=== PATIENT | female | born 1950 | race Caucasian/White ===

== ENCOUNTER 2017-07-15 16:03 | Outpatient (CLI) | payer MEDICARE, BC | END 2017-07-15 16:04 | disposition home or self-care (01) | LOC: BICMAMMO 16:03 | PROVIDERS: ATTEND Family Medicine | DX: Z12.31 Encounter for screening mammogram for malignant neoplasm of breast (principal); R92.1 Mammographic calcification found on diagnostic imaging of breast; Z80.3 Family history of malignant neoplasm of breast | CPT/HCPCS: 77063; 77067 ==

== ENCOUNTER 2018-02-13 23:34 | Observation (INO) | payer MEDICARE, BC ==
[2018-02-14] MEDS ORDERED: Nitroglycerin 2% Ointment 1 INCH/1 GM Packet ONE (00:08)
[2018-02-14 00:09] LABS: #Basophils 0.1 thou/uL (0.0-0.2); #Eosinphils 0.3 thou/uL (0.0-0.7); #Lymphocytes 1.9 thou/uL (1.20-3.40); #Monocytes 0.5 thou/uL (0.11-0.59); #Neutrophils 2.6 thou/uL (1.40-6.50); %Basophils 1.3 % (0.0-1.0); %Eosinophils 5.9 % (0.0-10.0); %Lymphocytes 35.2 % (21.0-51.0); %Monocytes 8.6 % (0.0-10.0); %Neutrophils 48.9 % (42.0-75.0); Hemoglobin 12.9 g/dL (12.0-16.0); Mean Corpuscular HGB CONC 33.6 g/dL (32.0-36.0); Mean Corpuscular Hemoglobin 29.2 pg (27.0-31.0); Mean Corpuscular Volume 86.8 fL (78.0-98.0); Mean Platelet Volume 6.8 fL (7.4-10.4); Platelet Count 259 thou/uL (130-400); RBC Distribution Width 11.8 % (11.5-14.5); Red Blood Cell (RBC) Count 4.42 mill/uL (4.20-5.40); White Blood Cell (WBC) Count 5.3 thou/uL (4.8-10.8)
[2018-02-14 00:29] LABS: ALT (SGPT) 20 U/L (8-55); AST (SGOT) 22 U/L (5-34); Albumin 4.2 g/dL (3.4-4.8); Alkaline Phosphatase 115 U/L (40-150); Anion Gap 12 mmol/L (10-20); BUN (Urea Nitrogen) 8 mg/dL (9.8-20.1); Bilirubin, Total 0.4 mg/dL (0.2-1.2); Calc. Creatinine Clearance 0 mL/min (70-130); Calcium 9.2 mg/dL (7.8-10.44); Carbon Dioxide 25 mmol/L (23-31); Chloride 105 mmol/L (98-107); Estimated GFR-MDRD 78; Glucose 135 mg/dL (80-115); Lipase 49 U/L (8-78); Potassium 3.4 mmol/L (3.5-5.1); Protein, Total 7.2 g/dL (6.0-8.3); Sodium 139 mmol/L (136-145)
[2018-02-14 00:33] LABS: CKMB 1.3 ng/mL (0-6.6); Troponin I Less than 0.010 ng/mL (< 0.028)
[2018-02-14 01:04] LABS: Bilirubin Negative (Negative); Blood, Urine Negative (Negative); Clarity CLOUDY (Clear); Glucose, Urine (Dipstick) Negative (Negative); Leukocyte Negative (Negative); Nitrite Negative (Negative); Protein, Urine (Dipstick) Negative (Neg-Trace); Specific Gravity, Urine 1.007 (1.002-1.036); Urobilinogen 0.2 mg/dL (0.2-1.0); pH, Urine 6.5 (5.0-9.0)
--- NOTE | 2018-02-14 01:48 | PDOC.FPRHP ---
- History of Present Illness Chief Complaint: chest pain History of Present Illness: Patient is a 67YO female w/ a PMH significant for HTN & HLD who presented to the ED with a CC of chest pain that she reports began around 23:00 on 02/13. The patient stated that she was up cleaning her house and had sudden onset central chest pressure that progressively worsening into a throbbing type of pain that radiated into her left shoulder, throat, and jaws. She said that she sat down to rest to see if that would lessen the pain but it did not help so she decided to come to the ED. The patient reports that this felt different from any pain that she has ever had before which was concerning to her. She says that at its max the pain was a 5/10 in severity but stated that it decreased to a 3/10 after getting the nitro paste in the ED. She reports that her pain is exacerbated by lying flat but is constant. She endorses some associated SOB but denies any N/V, diaphoresis, lightheadedness, or syncope. Of note, she has been on HT via an estrogen patch since having a B/L oophrectomy and hysterectomy in her late 40s. ED Course: Patient was given 1 inch of topical nitropaste & 1L of NS. - Allergies/Adverse Reactions Allergies Allergy/AdvReac Type Severity Reaction Status Date / Time codeine AdvReac Severe Nausea Verified 02/14/18 02:53 - Home Medications Medication Instructions Recorded Confirmed Type Aspirin [Ecotrin] 81 mg PO DAILY 02/14/18 02/14/18 History Aspirin/Acetaminophen/Caffeine 2 tab PO BID PRN 02/14/18 02/14/18 History [Excedrin Migraine Caplet] Dexlansoprazole [Dexilant] 30 mg PO DAILY 02/14/18 02/14/18 History Estradiol [Estradiol Patch] 1 patch TOP ASDIR 02/14/18 02/14/18 History Estradiol [Yuvafem] 1 tab VAG ASDIR 02/14/18 02/14/18 History Losartan Potassium 100 mg PO DAILY 02/14/18 02/14/18 History - History PMHx: HLD, HTN, h/o a benign parathyroid tumor PSHx: B/L oophrectomy, hysterectomy, appe, tonsillectomy, parathyroidectomy FHx: Mother- MD, TIAs, HTN, HLD Social: Lives at home with her . Works as a skilled trades teacher. Denies any tobacco, EtOH, or drug use. - Review of Systems General: denies: fever/chills, weight/appetite/sleep changes Eyes: denies: vision changes ENT: denies: nasal congestion Respiratory: reports: shortness of breath. denies: cough Cardiovascular: reports: chest pain. denies: palpitation Gastrointestinal: reports: diarrhea, constipation, GI bleeding (2/2 hemorrhoids) . denies: nausea, vomiting, abdominal pain Genitourinary: reports: other (no hematuria). denies: dysuria Skin: reports: itching. denies: rashes Musculoskeletal: reports: arthritis/arthralgias. denies: swelling Neurological: denies: numbness, syncope, weakness Psychological: denies: anxiety, depression - Vital signs BP: 179/87 HR: 85 RR: 18 Tmax: 97.9F Pox: 100% on RA Wt: 61.69kg - Physical Exam Constitutional: NAD, awake, alert and oriented, well developed HEENT: normocephalic and atraumatic, conjunctiva clear, no scleral icterus, grossly normal vision, grossly normal hearing Neck: supple, FROM Chest: no-tender to palpation, no lesions Heart: RRR, normal S1/S2, pulses present, no edema Lungs: CTAB, no respiratory distress, good air movement, no rales/rhonchi, no wheezing Abdomen: soft, non-tender, bowel sounds present Musculoskeletal: normal structure, ROM grossly normal Neurological: no focal deficit -Neurological: symmetric facial movements Skin: no rash/lesions, good turgor, capillary refill <2 seconds, no jaundice Heme/Lymphatic: no unusual bruising or bleeding Psychiatric: normal mood and affect, good judgment and insight, intact recent and remote memory FMR H&P: Results - Labs Result Diagrams: 02/14/18 00:01 02/14/18 02:58 Lab results: WBC 5.3 thou/uL (4.8-10.8) 02/14/18 00:01 Hgb 12.9 g/dL (12.0-16.0) 02/14/18 00:01 Hct 38.3 % (36.0-47.0) 02/14/18 00:01 MCV 86.8 fL (78.0-98.0) 02/14/18 00:01 Plt Count 259 thou/uL (130-400) 02/14/18 00:01 Neutrophils % 48.9 % (42.0-75.0) 02/14/18 00:01 Sodium 139 mmol/L (136-145) 02/14/18 00:01 Potassium 3.4 mmol/L (3.5-5.1) L 02/14/18 00:01 Chloride 105 mmol/L (98-107) 02/14/18 00:01 Carbon Dioxide 25 mmol/L (23-31) 02/14/18 00:01 BUN 8 mg/dL (9.8-20.1) L 02/14/18 00:01 Creatinine 0.74 mg/dL (0.6-1.1) 02/14/18 00:01 Glucose 135 mg/dL (80-115) H 02/14/18 00:01 Calcium 9.2 mg/dL (7.8-10.44) 02/14/18 00:01 Total Bilirubin 0.4 mg/dL (0.2-1.2) 02/14/18 00:01 AST 22 U/L (5-34) 02/14/18 00:01 ALT 20 U/L (8-55) 02/14/18 00:01 Alkaline Phosphatase 115 U/L (40-150) 02/14/18 00:01 CK-MB (CK-2) 1.3 ng/mL (0-6.6) 02/14/18 00:01 Serum Total Protein 7.2 g/dL (6.0-8.3) 02/14/18 00:01 Albumin 4.2 g/dL (3.4-4.8) 02/14/18 00:01 Lipase 49 U/L (8-78) 02/14/18 00:01 Urine Ketones Negative mg/dL (Negative) 02/14/18 00:55 Urine Blood Negative (Negative) 02/14/18 00:55 Urine Nitrite Negative (Negative) 02/14/18 00:55 Ur Leukocyte Esterase Negative (Negative) 02/14/18 00:55 - Radiology Interpretation CT scan - chest Status: report reviewed by il FMR H&P: A/P - Problem List (1) Chest pain Current Visit: Yes Status: Acute Code(s): R07.9 - CHEST PAIN, UNSPECIFIED (2) Hypokalemia Current Visit: Yes Status: Acute Code(s): E87.6 - HYPOKALEMIA (3) GERD (gastroesophageal reflux disease) Current Visit: Yes Status: Acute Code(s): K21.9 - GASTRO-ESOPHAGEAL REFLUX DISEASE WITHOUT ESOPHAGITIS (4) HTN (hypertension) Current Visit: Yes Status: Acute Code(s): I10 - ESSENTIAL (PRIMARY) HYPERTENSION (5) HLD (hyperlipidemia) Current Visit: Yes Status: Acute Code(s): E78.5 - HYPERLIPIDEMIA, UNSPECIFIED (6) History of benign parathyroid tumor Current Visit: Yes Status: Acute Code(s): Z86.39 - PERSONAL HISTORY OF ENDO , NUTRITIONAL AND METABOLIC DISEASE (7) Elevated d-dimer Current Visit: Yes Status: Acute Code(s): R79.89 - OTHER SPECIFIED ABNORMAL FINDINGS OF BLOOD CHEMISTRY - Plan 67YOF w/ a PMH of HTN & HLD who presents to the ED with a CC of sudden onset chest pain around 23:00 yesterday that was not relieved with rest but was relieved with nitro paste. Typical chest pain/unstable angina: - Patient reported typical central chest pain/pressure with radiation into L shoulder and jaws that was relieved with nitro paste. Could be from an NSTEMI vs. PE given associated SOB however, patient is not tachycardic and is satting well on RA. - Initial cardiac enzymes negative. ECG showed Q waves in lead III but otherwise no ST wave changes. Will trend troponins and continue to monitor closely on telemetry overnight. - Will check Mg & phos levels and check a TSH to r/o any organic causes that could have precipitated patient's CP. Will also order a FLP for risk stratification. - Will keep NPO overnight pending a stress test in the AM. Elevated D-dimer: - D-dimer elevated at 1.23 on presentation. - Could be 2/2 HT and/or stress from chest pain. - CTA of chest negative for PE. Hypokalemia: - K of 3.4 on presentation. - Will order a 20mEq PO dose to be taken once patient can tolerate PO. - Will monitor closely w/ repeat BMP with AM labs. HTN : - Patient's BP was significantly elevated w/ a SBP in the 200s on initial presentation. Decreased to 150s SBP after nitro paste was given but had increased back up to 179 on exam. - Will continue to monitor closely and resume home BP meds tomorrow once taking PO. Will consider adding IV PRNs for control overnight. HLD: - Aware. FLP pending for the AM. - Will resume home meds. GERD: - Aware, will resume home meds. h/o parathyroid tumor: - Aware, per patient tumor was benign and required only surgical removal. FMR H&P: Upper Level - Pertinent history 67 yo F presents with cc of chest pain that started around 2300 tonight. She was cleaning her house and had sudden onset pressure type pain that radiated to BL sides of her jaw and shoulder. She denies n/v/diaphoresis. She has never had this pain before. - Pertinent findings VSS as above, BP elevated Gen: awake, alert, oriented x3 CHEST: pain not reproducible with palpation HEENT: atraumatic, normorcephalic CV: RRR, no murmur noted RESP: CTAB ABD: soft, nontender, nondistended EXT: pulses 2+ throughout, no edema or cyanosis - Plan Date/Time: 02/14/18 0147 67 yo F with typical chest pain here for r/o MD 1. Typical chest pain - HEART score 5 - Will trend troponins and monitor on telemetry - NPO and plan for stress in AM - CT pending because d-dimer elevated - Check FLP, TSH, Mg, Phos, a1c or fasting glucose 2. Hypokalemia - Will replete 3. HTN - Home meds - Will give IV PRN Please see Dr. Alcantara's note for additional A/P I, Eleonora Montes MD, PGY-3, have evaluated this patient and agree with findings/ plan as outlined by internal medicine nurse resident. Pertinent changes/additions are listed here. Attending Addendum - Attending Addendum Date/Time: 02/14/18 2073 I personally evaluated the patient and discussed the management with Dr. Alcantara/ Simon. I agree with the History, Examination, Assessment and Plan documented above with any addition or exceptions noted below. Patient here with typical chest pain and family history of CAD. No chest pain currently. Stress test and further mgmt per that result. Will need statin therapy for HLD and increased ASCVD risk score.
[2018-02-14] MEDS ORDERED: Ondansetron PF 4 MG/2 ML Vial IVP PRN (02:40)
[2018-02-14] MEDS ORDERED: Acetaminophen 325 MG TAB PO PRN (02:40)
[2018-02-14] MEDS ORDERED: Nitroglycerin 0.4 MG TAB (25 Tab Bottle) PO PRN (02:40)
[2018-02-14 02:50] VITALS: BMI 26.6
[2018-02-14] MEDS ORDERED: hydrALAZINE 20 MG/ML VIAL SLOW IVP PRN (03:23)
[2018-02-14 03:35] LABS: Magnesium 2.1 mg/dL (1.6-2.6); Phosphorus 2.7 mg/dL (2.3-4.7)
[2018-02-14 03:40] LABS: Troponin I Less than 0.010 ng/mL (< 0.028)
[2018-02-14 03:53] LABS: Anion Gap 15 mmol/L (10-20); BUN (Urea Nitrogen) 7 mg/dL (9.8-20.1); Calc. Creatinine Clearance 81 mL/min (70-130); Calcium 9.1 mg/dL (7.8-10.44); Carbon Dioxide 20 mmol/L (23-31); Cardiac Risk 3.9 (Less than 4.5); Chloride 109 mmol/L (98-107); Cholesterol 195 mg/dl (< 200 Desired); Estimated GFR-MDRD 86; Glucose 122 mg/dL (80-115); HDL Cholesterol 50 mg/dL (>60 Neg Risk); LDL Cholesterol, Calculated 129 mg/dL; Potassium 4.1 mmol/L (3.5-5.1); Sodium 140 mmol/L (136-145); Triglycerides 80 mg/dL (Less than 150)
[2018-02-14] MEDS ORDERED: Aspirin/APAP/Caffeine Tab (Excedrin Migraine) PO PRN (04:03)
[2018-02-14 06:23] LABS: Troponin I Less than 0.010 ng/mL (< 0.028)
--- NOTE | 2018-02-14 07:23 | RAD ---
ONE VIEW CHEST: HISTORY: CHEST PAIN FINDINGS: Normal cardiac silhouette. The pulmonary vessels and hilum are normal. Costophrenic angles are durga r. No mass. No consolidation. No pneumothorax or osseous abnormalities. IMPRESSION: No acute cardiopulmonary process. POS: [facility]
[2018-02-14] MEDS ORDERED: Enoxaparin Sodium 40 MG/0.4 ML SYRINGE SC SCH (09:00)
[2018-02-14] MEDS ORDERED: Aspirin 81 mg Enteric Coated Tablet PO SCH (09:00)
[2018-02-14] MEDS ORDERED: Losartan 25 MG TAB PO SCH (09:00)
--- NOTE | 2018-02-14 09:23 | CT ---
PRELIMINARY REPORT/[facility]/EMERGENTY AFTER-HOURS PROCEDURE CT Angiography Chest With Intravenous Contrast EXAM DATE/TIME: 02/14/2018 1:01 AM CLINICAL HISTORY: 67 years old, female; Chest pain; Radiating; TECHNIQUE: Axial computed tomographic angiography images of the chest with intravenous contrast using CT angiogr aphy protocol. All CT scans at this facility use at least one of these dose optimization techniques: automated exposure control; mA and/or kV adjustment per patient size (includes targeted exams where dose is mat ched to clinical indication); or iterative reconstruction. MIP reconstructed images were created and reviewed. COMPARISON: No relevant prior studies available. FINDINGS: Pulmonary arteries: Normal. No pulmonary emboli. Aorta: Normal. No aortic aneurysm. No aortic dissection. Lungs: Scattered ground glass parenchymal opacities bilaterally may reflect mild infiltrates vs areas of mosaic perfusion. No lobar consolidation. No air bronchograms. No mass or suspicious lung nodules . Pleural space: Normal. No pneumothorax. No pleural effusion. Heart: Normal. No cardiomegaly. No pericardial effusion. Mediastinum: Small to moderate hiatal hernia. Lymph nodes: Unremarkable. No enlarged lymph nodes. Bones/joints: Unremarkable. No acute fracture. Soft tissues: Unremarkable. IMPRESSION: No pulmonary emboli. Scattered ground glass parenchymal opacities bilaterally may reflect mild infiltrates vs areas of mos aic perfusion. Small to moderate hiatal hernia. Thank you for allowing us to participate in the care of your patient. Dictated and Authenticated by: Percy Lopez MD 02/14/2018 1:29 AM Central Time ([place] & [place]) FINAL REPORT EMERGENT AFTER HOURS CT ANGIO CHEST PERFORMED WITH INTRAVENOUS CONTRAST ENHANCEMENT WITH 3D RECONSTRU CTIONS: HISTORY: Chest pain. FINDINGS: The lungs show a somewhat mosaic type of lung pattern which is fairly nonspecific. There is no confl uent infiltrative process present. No pulmonary nodules are identified. No significant mediastinal or hilar or axillary adenopathy is seen. Thoracic aorta is normal in caliber. There is fairly good pulmonary artery opacification, there is no CT evidence for pulmonary embolus. Hiatal hernia is noted. Visualized liver parenchyma shows no focal findings. The spleen is 11 cm in length. IMPRESSION: 1. Mosaic lung pattern. This can be caused by multiple causes. No confluent infiltrative process s een. 2. No CT evidence for a pulmonary embolus. 3. Moderate-sized hiatal hernia. 4. This report is in agreement with the temporary report issued by [facility]. POS: [facility]
[2018-02-14] MEDS ORDERED: ISOVUE-370 76%-LOCM 1 ML ONE (10:10)
[2018-02-14 12:18] VITALS: TEMP 97.8
[2018-02-14 12:45] VITALS: BP 161/74
--- NOTE | 2018-02-14 13:52 | NM ---
CARDIAC SPECT: HISTORY: A 67-year-old with chest pain, hypertension. TECHNIQUE: A myocardial perfusion scan is performed using the single-isotope 1-day protocol with Technetium 99m sestamibi. Ten mCi were injected intravenously for the rest exam followed by 27 mCi for the stress s tudy. Exercise stress was monitored and interpreted by Dr. Samuels. FINDINGS: Homogeneous tracer distribution is seen in the myocardial segments on stress and rest images without fixed or reversible defects. GATED SPECT LVEF: 84%. WALL MOTION EXAM: Normal. IMPRESSION: Normal myocardial perfusion scan. POS: [facility]
--- NOTE | 2018-02-18 04:18 | DIS-2 ---
DATE OF ADMISSION: 02/14/2018 DATE OF DISCHARGE: 02/14/2018 ADMITTING ATTENDING: Dre Townsend MD DISCHARGE ATTENDING: Dre Townsend MD RESIDENT: Hemalatha Alcantara MD and Cinthya Franz MD DISCHARGE DIAGNOSES: 1. chest pain, myocardial infarction ruled out. 2. Hypertension. 3. Hyperlipidemia. 4. History of benign parathyroid tumor. DISCHARGE MEDICATIONS: 1. Aspirin 81 mg daily. 2. Excedrin Migraine 2 tabs p.o. b.i.d. p.r.n. 3. Dexilant 30 mg p.o. daily. 4. Estradiol 1 patch topical as directed. 5. Estradiol 1 tablet vaginally inserted as directed. 6. Losartan 100 mg p.o. daily. PROCEDURES AND IMAGIN. There was a chest CTA done on 02/14/2018 that read no pulmonary emboli. There was scattered grou nd glass parenchymal opacities bilaterally may reflect mild infiltrates versus areas of perfusi on and a [id number] hiatal hernia. 2. A chest x-ray that was obtained on 02/13/2018 that showed no acute cardiopulmonary process. 3. There was a nuclear medicine exercise stress test that showed normal myocardial perfusion scan wi th a left ventricular ejection fraction of 84%. HISTORY OF PRESENT ILLNESS AND HOSPITAL COURSE: This is a 67-year-old female with past med ical history of hypertension, hyperlipidemia who presented to the ED with complaints of chest pain th at began late at night when she was cleaning her house. She described a sudden onset chest pain that was progressively worsening, throbbing, and radiating to her left shoulder throughout to jaw. She s at down and it did lessen the pain to some degree and her pain did improve after getting nitro in the ED. Patient proceeded to have a stress test. which ruled out and she had a reversible defect to the myocardium. Patient did have a lipid panel done to risk stratify, which showed her cholesterol to b e 195, LDL 129, HDL 50, and did give her an overall 10-year ASCVD risk of 9%. This was discussed in great detail with the patient and suggested that she would be started on a statin medication; however , the patient wanted to try diet and exercise and follow up with her PCP, which was recommended to do within 3 to 6 months to have repeat lipid panel and consideration of medication started at that time . Patient did have negative troponins x3 done during her hospital stay. Patient had an EKG that rere wed some Q-waves in lead 3, but otherwise no ST elevation or changes. It was recommended that patien t follow up with her PCP after hospital discharge. DISCHARGE INSTRUCTIONS: 1. Diet: Regular. 2. Activity: As tolerated. 3. Follow up with PCP after hospital discharge.
== END 2018-02-14 14:35 | disposition home or self-care (01) ==
LOC: ERS 23:34 → 2SW 02-14 01:47
PROVIDERS: ADMIT Student in an Organized Health Care Education/Training Program; ATTEND Student in an Organized Health Care Education/Training Program
DX: R07.89 Other chest pain (principal); E78.5 Hyperlipidemia, unspecified; E87.6 Hypokalemia; R79.89 Other specified abnormal findings of blood chemistry; I10 Essential (primary) hypertension; Z86.39 Personal history of other endocrine, nutritional and metabolic disease; Z82.49 Family history of ischemic heart disease and other diseases of the circulatory system; Z79.82 Long term (current) use of aspirin; Z79.899 Other long term (current) drug therapy; Z88.5 Allergy status to narcotic agent
CPT/HCPCS: 71045; 71275; 78452; 80048; 80053; 80061; 81003; 82553; 83690; 83735; 84100; 84443; 84484 ×2; 85025; 85379; 87086; 93005; 93017; 94760; 99285; A9500; G0378 ×2; 36415; 96360; J1650

== ENCOUNTER 2018-08-05 08:47 | Outpatient (CLI) | payer MEDICARE, BC ==
--- NOTE | 2018-08-05 09:19 | MMO ---
Bilateral MAMMO Bilat Screen [facility]. CLINICAL HISTORY: Patient is 68 years old and is seen for screening. The patient has the following family history of breast cancer: paternal aunt, 40's. The patient has no personal history of cancer. The patient has a history of bilateral Cyst Aspiration and bilateral Excisional Biopsy. VIEWS: The views performed were: bilateral craniocaudal with tomosynthesis; bilateral mediolateral oblique with tomosynthesis; and bilateral exaggerated craniocaudal. FILMS COMPARED: The present examination has been compared to prior imaging studies performed at [facility] on 12/22/2010, 01/13/2014, 04/07/2015, 06/05/2016 and 07/15/2017. MAMMOGRAM FINDINGS: There are scattered fibroglandular densities. There are stable benign appearing calcifications seen in both breasts. There are also vascular calcifications. There are no suspicious masses, suspicious calcifications, or new areas of architectural distortion. IMPRESSION: THERE IS NO MAMMOGRAPHIC EVIDENCE OF MALIGNANCY. A ROUTINE FOLLOW-UP MAMMOGRAM IN 1 YEAR IS RECOMMENDED. THE RESULTS OF THIS EXAM WERE SENT TO THE PATIENT. ACR BI-RADS Category 2 - Benign finding MAMMOGRAPHY NOTE: 1. A negative mammogram report should not delay a biopsy if a dominant of clinically suspicious mass is present. 2. Approximately 10% to 15% of breast cancers are not detected by mammography. 3. Adenosis and dense breasts may obscure an underlying neoplasm.
== END 2018-08-05 08:48 | disposition home or self-care (01) ==
LOC: BICMAMMO 08:47
PROVIDERS: ATTEND Family Medicine
DX: Z12.31 Encounter for screening mammogram for malignant neoplasm of breast (principal); Z80.3 Family history of malignant neoplasm of breast
CPT/HCPCS: 77063; 77067

== ENCOUNTER 2019-03-30 16:21 | Outpatient (CLI) | payer MEDICARE, BC ==
--- NOTE | 2019-03-30 16:53 | RAD ---
Chest 2 views HISTORY: Cough. FINDINGS: Cardiac silhouette and pulmonary vasculature are unremarkable. Mild reticulonodular interst itial prominence. No confluent airspace consolidation, pneumothorax, or pleural fluid. Mediastinum is midline. IMPRESSION: Diffuse reticulonodular interstitial prominence is nonspecific but can be seen with and a typical inflammatory process such as mycoplasma in the setting of cough. No lobar consolidation evident.
== END 2019-03-30 16:22 | disposition home or self-care (01) ==
LOC: BICRAD 16:21
PROVIDERS: ATTEND Family Medicine
DX: R05 Cough (principal); R91.8 Other nonspecific abnormal finding of lung field
CPT/HCPCS: 71046

== ENCOUNTER 2019-04-23 09:13 | Outpatient (CLI) | payer MEDICARE, BC ==
--- NOTE | 2019-04-23 10:01 | RAD ---
TWO VIEW CHEST: HISTORY: Dyspnea. COMPARISON: 03/30/2019. FINDINGS: The lung verma are clear. No infiltrate or vascular congestion. Heart and mediastinum unremarkable . Osseous structures unremarkable. IMPRESSION: No acute process. POS: [facility]
== END 2019-04-23 09:14 | disposition home or self-care (01) ==
LOC: RAD 09:13
PROVIDERS: ATTEND Internal Medicine Critical Care Medicine
DX: R06.00 Dyspnea, unspecified (principal)
CPT/HCPCS: 71046

== ENCOUNTER 2019-09-01 15:15 | Outpatient (CLI) | payer MEDICARE, BC ==
--- NOTE | 2019-09-01 15:54 | MMO ---
Bilateral MAMMO Bilat Screen [facility]. CLINICAL HISTORY: Patient is 69 years old and is seen for screening. The patient has the following family history of breast cancer: paternal aunt, 40's. The patient has no personal history of cancer. The patient has a history of bilateral Cyst Aspiration and bilateral Excisional Biopsy. VIEWS: The views performed were: bilateral craniocaudal with tomosynthesis; bilateral mediolateral oblique with tomosynthesis; and bilateral exaggerated craniocaudal. FILMS COMPARED: The present examination has been compared to prior imaging studies performed at [facility] on 04/07/2015, 06/05/2016, 07/15/2017 and 08/05/2018. This study has been interpreted with the assistance of computer-aided detection. MAMMOGRAM FINDINGS: There are scattered fibroglandular densities. There are stable benign appearing calcifications seen in both breasts. There are also vascular calcifications. There are no suspicious masses, suspicious calcifications, or new areas of architectural distortion. IMPRESSION: THERE IS NO MAMMOGRAPHIC EVIDENCE OF MALIGNANCY. A ROUTINE FOLLOW-UP MAMMOGRAM IN 1 YEAR IS RECOMMENDED. THE RESULTS OF THIS EXAM WERE SENT TO THE PATIENT. ACR BI-RADS Category 2 - Benign finding MAMMOGRAPHY NOTE: 1. A negative mammogram report should not delay a biopsy if a dominant of clinically suspicious mass is present. 2. Approximately 10% to 15% of breast cancers are not detected by mammography. 3. Adenosis and dense breasts may obscure an underlying neoplasm. Reported by: DEBRA GREEN MD Electonically Signed: [id number]
== END 2019-09-01 15:16 | disposition home or self-care (01) ==
LOC: BICMAMMO 15:15
PROVIDERS: ATTEND Family Medicine
DX: Z12.31 Encounter for screening mammogram for malignant neoplasm of breast (principal); Z80.3 Family history of malignant neoplasm of breast
CPT/HCPCS: 77063; 77067

== ENCOUNTER 2020-01-22 11:19 | Observation (INO) | payer MEDICARE, BC ==
[2020-01-22 11:56] LABS: #Basophils 0.1 thou/uL (0.0-0.2); #Eosinphils 0.3 thou/uL (0.0-0.7); #Lymphocytes 2.1 thou/uL (1.20-3.40); #Monocytes 0.8 thou/uL (0.11-0.59); %Basophils 0.8 % (0.0-1.0); %Eosinophils 3.7 % (0.0-10.0); %Lymphocytes 22.8 % (21.0-51.0); %Monocytes 8.3 % (0.0-10.0); %Neutrophils 64.4 % (42.0-75.0); Hemoglobin 15.4 g/dL (12.0-16.0); Mean Corpuscular HGB CONC 34.5 g/dL (32.0-36.0); Mean Corpuscular Hemoglobin 29.7 pg (27.0-31.0); Mean Corpuscular Volume 86.1 fL (78.0-98.0); Mean Platelet Volume 6.8 fL (7.4-10.4); Platelet Count 327 thou/uL (130-400); RBC Distribution Width 11.2 % (11.5-14.5); Red Blood Cell (RBC) Count 5.18 mill/uL (4.20-5.40); White Blood Cell (WBC) Count 9.3 thou/uL (4.8-10.8)
--- NOTE | 2020-01-22 11:56 | RAD ---
XR Chest 1 View Portable History: Shortness of breath Comparison: Radiograph March 2019 Findings: Lungs are clear. No pneumothorax or effusion. Likely small hiatal hernia. Cardiac silhouett e is within normal limits. No acute osseous abnormality. Impression: 1. No acute intrathoracic abnormality. 2. Small hiatal hernia.
[2020-01-22] MEDS ORDERED: Nitroglycerin 2% Ointment 1 INCH/1 GM Packet ONE (12:12)
[2020-01-22] MEDS ORDERED: Aspirin Chewable 81 MG TAB ONE (12:12)
[2020-01-22 12:14] LABS: ALT (SGPT) 18 U/L (8-55); AST (SGOT) 16 U/L (5-34); Albumin 4.7 g/dL (3.4-4.8); Alkaline Phosphatase 121 U/L (40-110); Anion Gap 13 mmol/L (10-20); BUN (Urea Nitrogen) 15 mg/dL (9.8-20.1); Bilirubin, Total 0.6 mg/dL (0.2-1.2); Calc. Creatinine Clearance 0 mL/min (70-130); Calcium 9.9 mg/dL (7.8-10.44); Carbon Dioxide 28 mmol/L (23-31); Chloride 100 mmol/L (98-107); Estimated GFR-MDRD 69; Globulin 3.5 g/dL (2.4-3.5); Glucose 98 mg/dL (80-115); Potassium 3.4 mmol/L (3.5-5.1); Protein, Total 8.2 g/dL (6.0-8.3); Sodium 138 mmol/L (136-145)
--- NOTE | 2020-01-22 14:26 | PDOC.FPRHP ---
- History of Present Illness Chief Complaint: Chest pain History of Present Illness: This is a 69F who presented to the ED for SOB and CP. This morning, she woke up with a VALERO and checked her BP which was approx 200/100. She took her morning Losartan and felt better. Later that morning, she started having SOB while "running around" at work that continued increasing and was then accompanied by CP. The pain was located on the L side under her breast, that was constant, dull, and rated at 4-5/10. There was no radiation. She said the SOB and CP felt like they were related to exertion and that if she could just sit down and rest they would go away, but she never stopped to rest. After this didn't resolve for 2 hours, she called her doctor who encouraged her to go to the ED. No hx of OH or CHF. She states she has not had CP on exertion before and her SOB initially started a few days ago but she was just diagnosed with and treated for bronchitis. She has a hx of GERD but states this feels very different and was not associated with a meal. She had a similar episode two years ago but states she had more pressure and a squeezing sensation that moved from her low central chest, up her neck, and into her jaw which feels very different from the pain today. She had a stress test performed then which was normal and she was discharged with instructions to f/u with her PCP for HLD management since she was resistant to starting a statin. - Allergies/Adverse Reactions Allergies Allergy/AdvReac Type Severity Reaction Status Date / Time codeine AdvReac Severe Nausea Verified 06/15/19 15:05 - Home Medications Medication Instructions Recorded Confirmed Type Aspirin/Acetaminophen/Caffeine 2 tab PO BID PRN 02/14/18 01/22/20 History [Excedrin Migraine Caplet] Dexlansoprazole [Dexilant] 30 mg PO DAILY 02/14/18 01/22/20 History Estradiol [Yuvafem] 1 tab VAG ASDIR 02/14/18 01/22/20 History Losartan Potassium 100 mg PO DAILY 02/14/18 01/22/20 History Fluticasone Propionate [Flonase 1 spray EA NARE DAILY 01/22/20 01/22/20 History Nasal [place]] Fluticasone Propionate [Flovent 100 mcg INH BID 01/22/20 01/22/20 History Diskus] Folic Acid 1 mg PO 01/22/20 History Mecobalamin [B12 Active] 2,500 mcg PO 01/22/20 History Metoprolol Succinate 50 mg PO DAILY 01/22/20 01/22/20 History Niacin 500 mg PO HS 01/22/20 01/22/20 History - History PMHx: HTN, HLD, migraines, GERD, suspicion for autoimmune disorder d/t recurrent joint pains/body aches PSHx: Hysterectomy, b/l oopherectomy, appendectomy, tonsillectomy, lithotripsy. No complications with anesthesia. FHx: Mom CAD Social: Lives with . Smoked as a teenager for 3-4yrs. Denies alcohol or drugs. Allergies: NKDA. "Allergy" to codeine and other pain meds is that they make her nauseated - Review of Systems General: denies: fever/chills Eyes: denies: vision changes Respiratory: reports: shortness of breath. denies: cough Cardiovascular: reports: chest pain, palpitation Gastrointestinal: denies: nausea, vomiting, diarrhea, abdominal pain Genitourinary: reports: dysuria Skin: denies: rashes Musculoskeletal: denies: swelling Neurological: denies: syncope - Vital signs BP: 184/97, Pulse: 72, Resp: 16, Temp: 97.8 (Oral), Pain: 5, O2 sat: 99 on (Room Air) - Physical Exam Constitutional: NAD, awake, alert and oriented, well developed HEENT: normocephalic and atraumatic, PERRLA, conjunctiva clear, grossly normal vision, grossly normal hearing, MMM Neck: supple Chest: no-tender to palpation Heart: RRR, normal S1/S2, no murmurs/rubs/gallops, pulses present, no edema Lungs: CTAB, no respiratory distress, good air movement Abdomen: soft, non-tender, bowel sounds present, no masses/distention Musculoskeletal: normal structure, normal tone, ROM grossly normal Neurological: no focal deficit Skin: no rash/lesions Heme/Lymphatic: no purpura Psychiatric: normal mood and affect, good judgment and insight, intact recent and remote memory FMR H&P: Results - Labs Result Diagrams: 01/22/20 11:37 01/22/20 11:37 Lab results: WBC 9.3 thou/uL (4.8-10.8) 01/22/20 11:37 Hgb 15.4 g/dL (12.0-16.0) 01/22/20 11:37 Hct 44.5 % (36.0-47.0) 01/22/20 11:37 MCV 86.1 fL (78.0-98.0) 01/22/20 11:37 Plt Count 327 thou/uL (130-400) 01/22/20 11:37 Neutrophils % 64.4 % (42.0-75.0) 01/22/20 11:37 Sodium 138 mmol/L (136-145) 01/22/20 11:37 Potassium 3.4 mmol/L (3.5-5.1) L 01/22/20 11:37 Chloride 100 mmol/L (98-107) 01/22/20 11:37 Carbon Dioxide 28 mmol/L (23-31) 01/22/20 11:37 BUN 15 mg/dL (9.8-20.1) 01/22/20 11:37 Creatinine 0.82 mg/dL (0.6-1.1) 01/22/20 11:37 Glucose 98 mg/dL (80-115) 01/22/20 11:37 Calcium 9.9 mg/dL (7.8-10.44) 01/22/20 11:37 Total Bilirubin 0.6 mg/dL (0.2-1.2) 01/22/20 11:37 AST 16 U/L (5-34) 01/22/20 11:37 ALT 18 U/L (8-55) 01/22/20 11:37 Alkaline Phosphatase 121 U/L (40-110) H 01/22/20 11:37 B-Natriuretic Peptide 84.9 pg/mL (0-100) 01/22/20 11:37 Serum Total Protein 8.2 g/dL (6.0-8.3) 01/22/20 11:37 Albumin 4.7 g/dL (3.4-4.8) 01/22/20 11:37 FMR H&P: A/P - Plan This is a 69F who presented to the ED after SOB and CP that started this morning with exertion and lasted 2hrs. Typical chest pain ACS R/O vs. Hypertensive urgency - VALERO with reported BP 200/100 - SOB/CP that started on exertion CP with ACS r/o in 2018 with neg stress test - CXR noncontributory - CBC, BMP nml, BNP 85, Alk Phos 121 - Trops neg x2, ED EKG neg - Lipid panel, A1c ordered - Stress test ordered Consider Cardiology consult pending results HTN - SBP ~180 on arrival and in 150s despite nitro patch - Continue home Losartan - Add on Amlodipine 5mg - Continue to monitor BPs and increase tx as necessary HLD - Lipid panel ordered - MD aware, continue home meds Chronic problems: Migraines - MD aware, continue home meds GERD - MD aware, continue home meds Code: Full Diet: HH, NPO at midnight for stress test IVF: N/A DVT Ppx: SCDs PCP: Aakash Dispo: Admit to tele obs. Expected LOS <48h pending stress test results. FMR H&P: Upper Level - Plan Date/Time: 01/22/20 1426 Ms Arana is a 69yo female with pmh of HTN, HLD, lupus presenting with pressure like chest pain and SOB that started this morning. Left sided chest pain that did not radiate. Currently 2/10 chest pain. Reports it completely resolved with Nitro but has mildly returned. Denied associated diaphoresis, nausea. Negative stress test 01/2018. Pain felt the same at that time. Received ASA 325mg in ED. Only current complaint is start of Migraine. PE: Vital signs reviewed General: NAD CV: Chest pain nonreproducible, RRR no murmurs Pulm: CTA b/l Extremities: No edema A/P: Typical Chest pain -EKG with no signs of ischemia, CXR no acute findings, Trop neg. Will admit to tele, trend trops. NPO at midnight for stress test in AM. EKG if return of chest pain. HTN, uncontrolled -BP 176/85. Continue home Losartan which is maxed out. Will add another oral agent, avoid BB due to stress test tomorrow. I, Swetha Crowley, have evaluated this patient and agree with findings/plan as outlined by dental internship resident. Pertinent changes/additions are listed here. Addendum - Attending - Attending Attestation Date/Time: 01/22/20 0688 I personally evaluated the patient and discussed the management with Dr. Ivy Alfaro/Keo. I agree with the History, Examination, Assessment and Plan documented above with any addition or exceptions noted below.
[2020-01-22 15:47] LABS: Troponin I Less than 0.010 ng/mL (< 0.028)
[2020-01-22] MEDS ORDERED: Aspirin/APAP/Caffeine Tab (Excedrin Migraine) PO PRN (16:47)
[2020-01-22] MEDS ORDERED: Acetaminophen 650 MG Suppository PR PRN (16:47)
[2020-01-22] MEDS ORDERED: Ondansetron ODT 4 MG TAB PO PRN (16:47)
[2020-01-22] MEDS ORDERED: Acetaminophen 325 MG TAB PO PRN (16:47)
[2020-01-22 18:14] LABS: Troponin I Less than 0.010 ng/mL (< 0.028)
[2020-01-22 19:19] LABS: Bilirubin Negative (Negative); Blood, Urine Negative (Negative); Clarity Clear (Clear); Glucose, Urine (Dipstick) Normal (Negative); Ketone, Urine Negative (Negative); Leukocyte Negative Leu/uL (Negative); Nitrite Negative (Negative); Protein, Urine (Dipstick) Negative (Neg-Trace); RBC/HPF 0-3 HPF (0-3); Specific Gravity, Urine 1.012 (1.002-1.036); Squamous Epithelial 0-3 HPF (0-3); Urobilinogen Normal mg/dL (Less than 2); WBC/HPF 0-3 HPF (0-3)
[2020-01-22 19:20] LABS: Bacteria/HPF Rare-Few HPF (None Seen)
[2020-01-22] MEDS: Mometasone Furoate 120 PUFF 220 MCG INH SCH (20:59)
[2020-01-22] MEDS ORDERED: Niacin 500 MG TAB PO SCH (21:00)
[2020-01-22] MEDS ORDERED: Amlodipine 5 MG TAB PO SCH (21:00)
[2020-01-23 05:20] LABS: Hemoglobin A1c 4.9 % (4.0-6.0)
[2020-01-23 05:37] LABS: Cardiac Risk 3.5 (Less than 4.5)
--- NOTE | 2020-01-23 06:02 | PDOC.FM ---
- Subjective Subjective: No acute overnight events. No further chest pain or SOB since admission from the ED. Had headache with nitro but that has resolved now too. Denies additional complaints this morning. Sinus sammy on tele overnight, reports her HR is always in 50-60s at rest. - Objective Vital Signs & Weight: Vital Signs (12 hours) Temp Pulse Resp BP BP Pulse Ox 01/23/20 03:47 97.8 F 61 16 131/63 98 01/23/20 00:35 56 L 122/64 01/22/20 21:45 60 113/60 01/22/20 20:59 97 01/22/20 19:45 98.1 F 62 16 133/67 95 Weight Weight 145 g I&O: 01/21/20 01/22/20 01/23/20 06:59 06:59 06:59 Intake Total 200 Output Total 400 Balance -200 Result Diagrams: 01/22/20 11:37 01/22/20 11:37 EKG Reviewed by me: Yes (tele reviewed - sinus sammy 50s) Phys Exam - Physical Examination Constitutional: NAD HEENT: moist MMs Respiratory: no wheezing, no rales, no rhonchi, clear to auscultation bilateral Cardiovascular: RRR, no significant murmur Gastrointestinal: soft, non-tender, no distention, positive bowel sounds Musculoskeletal: no edema Neurological: non-focal, moves all 4 limbs Psychiatric: normal affect, A&O x 3 Skin: no rash Dx/Plan - Plan Plan: This is a 69F who presented to the ED after SOB and CP that started this morning with exertion and lasted 2hrs. Typical chest pain likely 2/2 HTN urgency vs ACS less likely Exertional chest pain, now resolved. Reported outpatient BP 200/100, now wnl. Stress test in 2018 - negative. Trops neg x 3, EKG wnl. No events on tele. CBC, CMP, BNP all wnl. - Stress test pending - likely discharge to home after stress test if normal HTN On home losartan and newly added 5mg amlodipine, now normotensive - continue losartan and amlodipine - continue to monitor BP HLD ASCVD 11.4%, moderate to high intensity statin recommended. Dietary interventions tried in past per patient. - discuss starting statin therapy Chronic problems: Migraines - MD aware, continue home meds GERD - MD aware, continue home meds Code: Full Diet: HH, NPO at midnight for stress test IVF: N/A DVT Ppx: SCDs PCP: Aakash Dispo: Admit to tele obs. Expected LOS <48h pending stress test results. Addendum - Attending - Attending Attestation Date/Time: 01/23/20 0750 I personally evaluated the patient and discussed the management with Dr. Haines. I agree with the History, Examination, Assessment and Plan documented above with any addition or exceptions noted below. Patient feels improved, no further chest pain. Undergoing stress test this morning. Her BP is improved with Norvasc added. Awaiting stress test results, then likely dc home pending negative result. Counselling and reassurance provided this morning.
[2020-01-23] MEDS ORDERED: Fluticasone Propionate Nasal Spray 16 gm Bottle NASAL SCH (09:00)
[2020-01-23] MEDS ORDERED: Losartan 25 MG TAB PO SCH (09:00)
[2020-01-23] MEDS ORDERED: Niacin 500 MG TAB PO SCH (09:00)
[2020-01-23] MEDS ORDERED: Folic Acid 1 MG TAB PO SCH (09:00)
[2020-01-23] MEDS ORDERED: Cyanocobalamin (Vitamin B-12) 1,000 MCG TAB PO SCH (09:00)
[2020-01-23 12:28] VITALS: BP 109/59; TEMP 98.1
--- NOTE | 2020-01-23 18:07 | NM ---
MYOCARDIAL PERFUSION SCAN: 01/23/20 PROVIDED CLINICAL HISTORY: Chest pain. RADIOPHARMACEUTICAL: 28.7 millicuries technetium 99m labeled Sestamibi IV stress. 10.4 millicuries technetium 99m labeled Sestamibi IV rest. FINDINGS: There is normal homogeneous distribution of radiotracer throughout the left ventricular myocardium at stress and rest. Gated data demonstrate normal cardiac wall motion and thickening with calculated LV EF of 88%. TID of 0.8. IMPRESSION: 1. No scintigraphic evidence for ischemia. 2. Normal LVEF. POS: AL
[2020-01-23] MEDS: Mometasone Furoate 120 PUFF 220 MCG INH SCH (19:40)
[2020-01-25 00:12] LABS: SARS-CoV-2 MS2 Positive; SARS-CoV-2 N Gene Negative; SARS-CoV-2 S Gene Negative; SARS-CoV-2 by NAA Not Detected (Not Detected); SARS-CoV-2 orf1ab Negative
--- NOTE | 2020-01-25 11:57 | DIS ---
DATE OF ADMISSION: 01/22/2020 DATE OF DISCHARGE: 01/23/2020 CONSULT: None. PROCEDURES: Stress test. PRIMARY DIAGNOSIS: Hypertensive urgency. SECONDARY DIAGNOSES: 1. Hyperlipidemia. 2. Migraines. 3. Gastroesophageal reflux disease. DISCHARGE MEDICATIONS: 1. Losartan 100 mg p.o. daily. 2. Dexilant 30 mg p.o. daily. 3. Yuvafem 10 mcg as directed. 4. Excedrin 2 tabs p.o. b.i.d. p.r.n. 5. Flovent 100 mcg b.i.d. 6. Niacin 500 mg daily. 7. Metoprolol 50 mg p.o. at bedtime. 8. Flonase 1 spray each nostril daily. Discontinued medications: None. HISTORY OF PRESENT ILLNESS/HOSPITAL COURSE: This is a 69-year-old female who presented to the ED for shortness of breath and chest pain that got worse with exertion, left-sided, dull. She had a similar episode of chest pain two years ago at which time she had a stress test performed which was normal. Her chest x-ray and EKG were within normal limits, which according to the patient were negative. She reported a blood pressure of 200/100 and a headache at home before coming in. A stress test was also performed which was negative. Risk stratification labs were kept including a lipid panel which showed elevated cholesterol including an LDL greater than 100. Discussed with patient at length starting a statin medication for prevention of future stroke or other cardiovascular events. The patient was resistant to this idea and wanted to 1st discuss with her primary care physician. We recommended to start a moderate to high-intensity statin for an ASCVD risk score of 11.1%. She was given this information and instructed to follow up with her primary care physician regarding this. Her blood pressure was improved with nitroglycerin. Amlodipine was also added to her regimen and her blood pressure responded well to this. DISPOSITION: Stable. DISCHARGE INSTRUCTIONS: 1. Location, home. 2. Diet, heart healthy. 3. Activity, as tolerated. 4. Followup with your PCP, Dr. Finn within 1 week. Job ID: [id number]
== END 2020-01-23 19:06 | disposition home or self-care (01) ==
LOC: ERS 11:19 → 2SW 16:38
PROVIDERS: ADMIT Student in an Organized Health Care Education/Training Program; ATTEND Student in an Organized Health Care Education/Training Program
DX: I16.0 Hypertensive urgency (principal); E78.5 Hyperlipidemia, unspecified; G43.909 Migraine, unspecified, not intractable, without status migrainosus; K21.9 Gastro-esophageal reflux disease without esophagitis; I10 Essential (primary) hypertension; Z79.82 Long term (current) use of aspirin; Z79.899 Other long term (current) drug therapy; Z20.828 Contact with and (suspected) exposure to other viral communicable diseases; Z88.5 Allergy status to narcotic agent; Z87.891 Personal history of nicotine dependence
CPT/HCPCS: 71045; 78452; 80053; 80061; 81001; 83036; 83880; 84484 ×2; 85025; 93005; 93017; 94640; 99285; A9500; G0378 ×3; U0003; 36415; 87635

== ENCOUNTER 2020-11-22 14:54 | Outpatient (CLI) | payer MEDICARE, BC | END 2020-11-22 14:55 | disposition home or self-care (01) | LOC: BICMAMMO 14:54 | PROVIDERS: ATTEND Family Medicine | DX: Z12.31 Encounter for screening mammogram for malignant neoplasm of breast (principal); Z80.3 Family history of malignant neoplasm of breast | CPT/HCPCS: 77063; 77067 ==

== ENCOUNTER 2020-11-29 06:59 | Outpatient (CLI) | payer MEDICARE, BC | END 2020-11-29 07:00 | disposition home or self-care (01) | LOC: BICULT 06:59 | PROVIDERS: ATTEND Physician Assistant Medical | DX: K21.9 Gastro-esophageal reflux disease without esophagitis (principal); R14.0 Abdominal distension (gaseous) | CPT/HCPCS: 76705 ==

== ENCOUNTER 2021-10-13 08:05 | Outpatient (CLI) | payer MEDICARE, BC | END 2021-10-13 08:06 | disposition home or self-care (01) | LOC: BICMAMMO 08:05 | PROVIDERS: ATTEND Family Medicine | DX: Z13.820 Encounter for screening for osteoporosis (principal); M85.89 Other specified disorders of bone density and structure, multiple sites | CPT/HCPCS: 77080 ==

== ENCOUNTER 2022-01-25 11:53 | Outpatient (CLI) | payer MEDICARE, BC | END 2022-01-25 11:54 | disposition home or self-care (01) | LOC: BICMAMMO 11:53 | PROVIDERS: ATTEND Family Medicine | DX: Z12.31 Encounter for screening mammogram for malignant neoplasm of breast (principal); Z80.3 Family history of malignant neoplasm of breast | CPT/HCPCS: 77063; 77067 ==

== ENCOUNTER 2022-07-25 14:57 | Outpatient (CLI) | payer MEDICARE, BC | END 2022-07-25 14:58 | disposition home or self-care (01) | LOC: BICCT 14:57 | PROVIDERS: ATTEND Surgery | DX: M48.062 Spinal stenosis, lumbar region with neurogenic claudication (principal); M54.16 Radiculopathy, lumbar region; M43.17 Spondylolisthesis, lumbosacral region; M43.16 Spondylolisthesis, lumbar region | CPT/HCPCS: 72120; 72131 ==

== ENCOUNTER 2023-06-14 12:37 | Outpatient (CLI) | payer MEDICARE | END 2023-06-14 12:38 | disposition home or self-care (01) | LOC: MRI 12:37 | PROVIDERS: ATTEND Family Medicine | DX: I63.6 Cerebral infarction due to cerebral venous thrombosis, nonpyogenic (principal) | CPT/HCPCS: 70551 ==

== ENCOUNTER 2023-09-23 15:01 | Outpatient (CLI) | payer MEDICARE | END 2023-09-23 15:02 | disposition home or self-care (01) | LOC: BICRAD 15:01 | PROVIDERS: ATTEND Family Medicine | DX: M25.532 Pain in left wrist (principal) ==

== ENCOUNTER 2024-09-24 07:51 | Outpatient (CLI) | payer MEDICARE | END 2024-09-24 07:52 | disposition home or self-care (01) | LOC: BICMAMMO 07:51 | PROVIDERS: ATTEND Family Medicine | DX: M85.89 Other specified disorders of bone density and structure, multiple sites (principal) | CPT/HCPCS: 77080 ==